=== PATIENT | female | born 1955 | race African-American/Black ===

== ENCOUNTER 2016-10-07 11:57 | Emergency (ER) | payer MEDICAID ==
[~2016-10-07] VITALS: Ht 165.1 cm; Wt 87.0 kg
[~2016-10-07 11:57] MED LIST: DIVA-18 PO; FLUO10CA63 PO; GABA300C PO; IBUP-1509 PO
[2016-10-07] MEDS ORDERED: SODIUM CHLORIDE 0.9% 1,000 ML IV ONE (12:28)
[2016-10-07] MEDS ORDERED: LEVETIRACETAM 500MG PREMIX 100 ML IV ONE (12:30)
[2016-10-07 12:52] LABS: BASOPHILS % 0.7 % (0.0-2.0); EOSINOPHILS % 1.2 % (0.0-5.0); HEMATOCRIT. 38.7 % (36.0-48.0); HEMOGLOBIN. 13.2 g/dL (12.0-16.0); LYMPHOCYTES % 35.5 % (20.0-50.0); MEAN CORPUSCULAR HEMOGLOBIN 30.8 pg (28.0-32.0); MEAN CORPUSCULAR VOLUME 90.5 fL (81.0-99.0); MEAN PLATELET VOLUME 8.1 fl (7.4-10.4); MONOCYTES % 8.9 % (2.0-8.0); NEUTROPHILS % 53.7 % (40.0-76.0); PLATELET 247 x1000/uL (130-400); RED BLOOD CELL COUNT 4.27 mill/uL (4.2-5.4); RED CELL DISTRIBUTION WIDTH 13.8 % (11.6-14.6); WHITE BLOOD COUNT 8.1 x1000/uL (4.5-11.0)
[2016-10-07 13:00] LABS: PROTHROMBIN TIME 10.4 sec
[2016-10-07 13:07] LABS: ALANINE AMINOTRANSFERASE 18 IU/L (13-61); ALBUMIN 3.8 g/dL (3.4-5.0); ANION GAP 16; CALCIUM 8.8 mg/dL (8.5-10.1); CARBON DIOXIDE 30 mEq/L (21-32); CHLORIDE 98 mEq/L (98-107); ETHANOL BLOOD < 10 mg/dL; INDEX HEMOLYSI 1 (1-3); INDEX ICTERIC 1 (1-4); INDEX LIPEMIC 1 (1-3); TROPONIN I < 0.02 ng/mL (0.00-0.04); UREA NITROGEN BLOOD 11 mg/dL (7-21); eGFR > 60 mL/min (>60)
[2016-10-07 13:09] LABS: PHENOBARBITAL 2.2 ug/mL (15.0-40.0)
[2016-10-07 13:10] LABS: CARBAMAZEPINE < 0.5 ug/mL (4-12); PHENYTOIN 0.4 ug/mL (10-20)
[2016-10-07 13:13] LABS: NT PRO B-TYPE NATRIURETIC PEP 208 pg/mL (5-125)
[2016-10-07] MEDS ORDERED: MORPHINE SULFATE 4 MG/ML CPJ (NOT FOR IM USE) IV ONE (15:00)
[2016-10-07] MEDS ORDERED: KETOROLAC 30MG/ML VIAL IV ONE (15:00)
[2016-10-07 15:14] VITALS: BP 151/93
== END 2016-10-07 16:28 | disposition home or self-care (01) ==
LOC: ER 12:13
DX: S09.90XA Unspecified injury of head, initial encounter (principal); R56.9 Unspecified convulsions; R51 Headache; I10 Essential (primary) hypertension; E11.9 Type 2 diabetes mellitus without complications; X58.XXXA Exposure to other specified factors, initial encounter; Y93.89 Activity, other specified; Y92.89 Other specified places as the place of occurrence of the external cause; Z88.8 Allergy status to other drugs, medicaments and biological substances
CPT/HCPCS: 36415; 70450; 80053; 80156; 80165; 80184; 80185; 83880; 84443; 84484; 85025; 85610; 93005; 99285; G0482; J1885; J1953; J2270; J7030; Z7610

== ENCOUNTER 2016-11-02 12:54 | Emergency (ER) | payer MEDICAID ==
[~2016-11-02] VITALS: Ht 165.1 cm; Wt 110.0 kg
[2016-11-02 14:00] LABS: BASOPHILS % 1.2 % (0.0-2.0); EOSINOPHILS % 1.4 % (0.0-5.0); HEMATOCRIT. 38.1 % (36.0-48.0); HEMOGLOBIN. 13.1 g/dL (12.0-16.0); LYMPHOCYTES % 44.4 % (20.0-50.0); MEAN CORPUSCULAR HEMOGLOBIN 30.9 pg (28.0-32.0); MEAN CORPUSCULAR HGB CONC 34.3 g/dL (31.0-37.0); MEAN CORPUSCULAR VOLUME 89.9 fL (81.0-99.0); MEAN PLATELET VOLUME 9.3 fl (7.4-10.4); MONOCYTES % 7.8 % (2.0-8.0); NEUTROPHILS % 45.2 % (40.0-76.0); PLATELET 222 x1000/uL (130-400); RED BLOOD CELL COUNT 4.23 mill/uL (4.2-5.4); RED CELL DISTRIBUTION WIDTH 13.4 % (11.6-14.6); WHITE BLOOD COUNT 8.1 x1000/uL (4.5-11.0)
[2016-11-02 14:06] LABS: CHLORIDE 97 mEq/L (98-107); INDEX HEMOLYSI 1 (1-3); INDEX ICTERIC 1 (1-4); INDEX LIPEMIC 1 (1-3)
[2016-11-02 14:15] LABS: ALANINE AMINOTRANSFERASE 15 IU/L (13-61); ALBUMIN 3.6 g/dL (3.4-5.0); ANION GAP 14; CALCIUM 8.6 mg/dL (8.5-10.1); CARBON DIOXIDE 29 mEq/L (21-32); UREA NITROGEN BLOOD 14 mg/dL (7-21)
[2016-11-02 14:18] LABS: VALPROIC ACID 77.6 ug/mL (50-100); eGFR > 60 mL/min (>60)
[2016-11-02] MEDS ORDERED: FAMOTIDINE 20MG/2ML VIAL IV ONE (15:45)
[2016-11-02] MEDS ORDERED: VISCOUS LIDOCAINE 2% 15 ML UDC MM ONE (15:45)
[2016-11-02] MEDS ORDERED: MAGNESIUM/ALUMINUM HYDROXIDE/SIMETHICONE 30ML UDC PO ONE (15:45)
[2016-11-02 16:56] LABS: CLARITY URINE CLEAR (CLEAR); COLOR URINE YELLOW (YELLOW); GLUCOSE URINE 1+ (NEGATIVE); KETONES URINE NEGATIVE (NEGATIVE); LEUKOCYTE ESTERASE URINE NEGATIVE (NEGATIVE); NITRITE URINE NEGATIVE (NEGATIVE); OCCULT BLOOD URINE NEGATIVE (NEGATIVE); PH URINE 5.5 (4.5-8.0); PROTEIN URINE NEGATIVE (NEGATIVE); SPECIFIC GRAVITY URINE 1.016 (1.005-1.030); UROBILINOGEN URINE 0.2 E.U./dL (0.2-1.0)
[2016-11-02 17:13] LABS: BACTERIA URINE TRACE; RBC URINE NONE SEEN /hpf (0-2); SQUAMOUS EPITHELIAL CELL URINE 1+ /lpf (RARE/1+); WBC URINE 0-2 /hpf (0-2)
[2016-11-02 17:28] VITALS: BP 102/60
== END 2016-11-02 18:35 | disposition home or self-care (01) ==
LOC: ER 12:56
DX: G40.909 Epilepsy, unspecified, not intractable, without status epilepticus (principal); R10.13 Epigastric pain; E11.9 Type 2 diabetes mellitus without complications; I10 Essential (primary) hypertension; Z88.8 Allergy status to other drugs, medicaments and biological substances
CPT/HCPCS: 36415; 80053; 80165; 81001; 82962; 83690; 85025; 96374; 99284; J3490; Z7610

== ENCOUNTER 2016-11-04 12:22 | Emergency (ER) | payer MEDICAID ==
[~2016-11-04] VITALS: Ht 167.6 cm; Wt 70.0 kg
[2016-11-04] MEDS ORDERED: SODIUM CHLORIDE 0.9% 1,000 ML IV ONE (12:48)
[2016-11-04 13:18] LABS: BASOPHILS % 1.2 % (0.0-2.0); EOSINOPHILS % 1.1 % (0.0-5.0); HEMATOCRIT. 39.2 % (36.0-48.0); HEMOGLOBIN. 13.1 g/dL (12.0-16.0); LYMPHOCYTES % 41.5 % (20.0-50.0); MEAN CORPUSCULAR HEMOGLOBIN 30.6 pg (28.0-32.0); MEAN CORPUSCULAR HGB CONC 33.6 g/dL (31.0-37.0); MEAN PLATELET VOLUME 9.8 fl (7.4-10.4); MONOCYTES % 8.7 % (2.0-8.0); NEUTROPHILS % 47.5 % (40.0-76.0); PLATELET 172 x1000/uL (130-400); RED CELL DISTRIBUTION WIDTH 13.4 % (11.6-14.6); WHITE BLOOD COUNT 9.1 x1000/uL (4.5-11.0)
[2016-11-04 13:33] LABS: ALANINE AMINOTRANSFERASE 17 IU/L (13-61); ALBUMIN 3.8 g/dL (3.4-5.0); ANION GAP 16; CALCIUM 9.1 mg/dL (8.5-10.1); CARBON DIOXIDE 29 mEq/L (21-32); CHLORIDE 99 mEq/L (98-107); INDEX HEMOLYSI 1 (1-3); INDEX ICTERIC 1 (1-4); INDEX LIPEMIC 1 (1-3); UREA NITROGEN BLOOD 18 mg/dL (7-21); VALPROIC ACID 78.4 ug/mL (50-100); eGFR > 60 mL/min (>60)
[2016-11-04 17:40] VITALS: BP 129/67
[2016-11-04] MEDS ORDERED: DIVALPROEX SODIUM 500MG DR TABLET PO ONE (18:00)
[2016-11-04] MEDS ORDERED: LEVETIRACETAM 500MG TABLET PO ONE (18:00)
== END 2016-11-04 18:51 | disposition home or self-care (01) ==
LOC: ER 12:42
DX: R56.9 Unspecified convulsions (principal); E11.9 Type 2 diabetes mellitus without complications; I10 Essential (primary) hypertension; Z88.8 Allergy status to other drugs, medicaments and biological substances; Z79.1 Long term (current) use of non-steroidal anti-inflammatories (NSAID); Z79.899 Other long term (current) drug therapy; Z90.710 Acquired absence of both cervix and uterus
CPT/HCPCS: 36415; 80053; 80165; 85025; 93005; 96360; 99285; J7030; Z7610

== ENCOUNTER 2017-02-28 13:13 | Emergency (ER) | payer MEDICAID ==
[~2017-02-28] VITALS: Ht 167.6 cm; Wt 82.0 kg
[2017-02-28] MEDS ORDERED: LORAZEPAM 2MG/ML CPJ IV PRN (14:45)
[2017-02-28 16:18] LABS: CLARITY URINE CLEAR (CLEAR); COLOR URINE YELLOW (YELLOW); GLUCOSE URINE 2+ (NEGATIVE); KETONES URINE TRACE (NEGATIVE); LEUKOCYTE ESTERASE URINE NEGATIVE (NEGATIVE); NITRITE URINE NEGATIVE (NEGATIVE); OCCULT BLOOD URINE NEGATIVE (NEGATIVE); PROTEIN URINE TRACE (NEGATIVE); SPECIFIC GRAVITY URINE 1.018 (1.005-1.030); UROBILINOGEN URINE 0.2 E.U./dL (0.2-1.0)
[2017-02-28 16:30] LABS: *AMPHETAMINES SCREEN URINE NEGATIVE (NEGATIVE); *BARBITURATES SCREEN URINE NEGATIVE (NEGATIVE); *BENZODIAZEPINES SCREEN URINE PRESUMTIVE POSITIVE (NEGATIVE); *COCAINE SCREEN URINE NEGATIVE (NEGATIVE); CANNABINOID URINE SCREEN NEGATIVE (NEGATIVE); METHADONE URINE SCREEN NEGATIVE (NEGATIVE); OPIATES URINE SCREEN NEGATIVE (NEGATIVE); PHENCYCLIDINE URINE SCREEN NEGATIVE (NEGATIVE)
[2017-02-28 18:30] VITALS: BP 143/62
== END 2017-02-28 19:34 | disposition home or self-care (01) ==
LOC: ER 13:17
DX: R56.9 Unspecified convulsions (principal); I10 Essential (primary) hypertension; E11.9 Type 2 diabetes mellitus without complications; Z88.8 Allergy status to other drugs, medicaments and biological substances
CPT/HCPCS: 80305; 81001; 82962; 99284; C1893; Z7610

== ENCOUNTER 2017-03-01 10:21 | Emergency (ER) | payer MEDICAID ==
[~2017-03-01] VITALS: Ht 162.6 cm; Wt 95.0 kg
[2017-03-01 10:57] LABS: EOSINOPHILS % 0.3 % (0.0-5.0); HEMATOCRIT. 37.1 % (36.0-48.0); HEMOGLOBIN. 12.9 g/dL (12.0-16.0); LYMPHOCYTES % 20.8 % (20.0-50.0); MEAN CORPUSCULAR HEMOGLOBIN 30.7 pg (28.0-32.0); MEAN CORPUSCULAR VOLUME 88.5 fL (81.0-99.0); MEAN PLATELET VOLUME 8.9 fl (7.4-10.4); MONOCYTES % 9.9 % (2.0-8.0); PLATELET 226 x1000/uL (130-400); RED BLOOD CELL COUNT 4.19 mill/uL (4.2-5.4)
[2017-03-01 11:04] LABS: INR 1.1; PROTHROMBIN TIME 11.1 sec
[2017-03-01 11:12] LABS: CARBON DIOXIDE 25 mEq/L (21-32); CHLORIDE 98 mEq/L (98-107); ETHANOL BLOOD < 10 mg/dL
[2017-03-01 12:39] LABS: CLARITY URINE CLEAR (CLEAR); COLOR URINE YELLOW (YELLOW); GLUCOSE URINE NEGATIVE (NEGATIVE); KETONES URINE NEGATIVE (NEGATIVE); LEUKOCYTE ESTERASE URINE NEGATIVE (NEGATIVE); NITRITE URINE NEGATIVE (NEGATIVE); OCCULT BLOOD URINE NEGATIVE (NEGATIVE); PROTEIN URINE NEGATIVE (NEGATIVE); SPECIFIC GRAVITY URINE 1.011 (1.005-1.030); UROBILINOGEN URINE 0.2 E.U./dL (0.2-1.0)
[2017-03-01 12:56] LABS: *AMPHETAMINES SCREEN URINE NEGATIVE (NEGATIVE); *BARBITURATES SCREEN URINE NEGATIVE (NEGATIVE); *BENZODIAZEPINES SCREEN URINE PRESUMTIVE POSITIVE (NEGATIVE); *COCAINE SCREEN URINE NEGATIVE (NEGATIVE); CANNABINOID URINE SCREEN NEGATIVE (NEGATIVE); METHADONE URINE SCREEN NEGATIVE (NEGATIVE); OPIATES URINE SCREEN NEGATIVE (NEGATIVE); PHENCYCLIDINE URINE SCREEN NEGATIVE (NEGATIVE)
[2017-03-01] MEDS ORDERED: KETOROLAC 30MG/ML VIAL IV ONE (13:30)
[2017-03-01] MEDS ORDERED: LORAZEPAM 0.5MG TABLET PO ONE (13:30)
[2017-03-01 14:09] VITALS: BP 131/85
== END 2017-03-01 14:09 | disposition home or self-care (01) ==
LOC: ER 11:10
DX: G40.909 Epilepsy, unspecified, not intractable, without status epilepticus (principal); D72.829 Elevated white blood cell count, unspecified; I10 Essential (primary) hypertension; E11.9 Type 2 diabetes mellitus without complications; Z90.710 Acquired absence of both cervix and uterus; Z88.8 Allergy status to other drugs, medicaments and biological substances
CPT/HCPCS: 36415; 70450; 71010; 80053; 80305; 81003; 85025; 85610; 93005; 96374; 99285; G0482; J1885; Z7610

== ENCOUNTER 2017-04-03 21:31 | Emergency (ER) | payer MEDICAID ==
[~2017-04-03] VITALS: Ht 167.6 cm; Wt 100.0 kg
[~2017-04-03 21:31] MED LIST changes: +FLUO10CA25 PO; -FLUO10CA63 PO; -IBUP-1509 PO; +IBUP-2028 PO
[2017-04-03] MEDS ORDERED: SODIUM CHLORIDE 0.9% 1,000 ML IV ONE (22:24)
[2017-04-03] MEDS ORDERED: LEVETIRACETAM 1,000 MG in SODIUM CHLORIDE 0.9% 100 ML IV ONE (22:30)
[2017-04-03] MEDS ORDERED: LORAZEPAM 2MG/ML CPJ IV ONE (22:30)
[2017-04-03 23:45] LABS: BASOPHILS % 0.6 % (0.0-2.0); EOSINOPHILS % 1.2 % (0.0-5.0); HEMATOCRIT. 38.1 % (36.0-48.0); HEMOGLOBIN. 13.3 g/dL (12.0-16.0); LYMPHOCYTES % 39.7 % (20.0-50.0); MEAN CORPUSCULAR HEMOGLOBIN 31.1 pg (28.0-32.0); MEAN CORPUSCULAR VOLUME 89.4 fL (81.0-99.0); MEAN PLATELET VOLUME 9.3 fl (7.4-10.4); MONOCYTES % 10.9 % (2.0-8.0); NEUTROPHILS % 47.6 % (40.0-76.0); PLATELET 213 x1000/uL (130-400); RED BLOOD CELL COUNT 4.26 mill/uL (4.2-5.4); RED CELL DISTRIBUTION WIDTH 13.5 % (11.6-14.6)
[2017-04-04 00:05] LABS: CARBON DIOXIDE 28 mEq/L (21-32); CHLORIDE 99 mEq/L (98-107); CREATINE KINASE 165 IU/L (26-192); ETHANOL BLOOD < 10 mg/dL; TROPONIN I < 0.02 ng/mL (0.00-0.04)
[2017-04-04 02:47] VITALS: BP 125/76
[2017-04-04 02:58] LABS: CLARITY URINE CLEAR (CLEAR); COLOR URINE YELLOW (YELLOW); GLUCOSE URINE 3+ (NEGATIVE); KETONES URINE TRACE (NEGATIVE); LEUKOCYTE ESTERASE URINE NEGATIVE (NEGATIVE); NITRITE URINE NEGATIVE (NEGATIVE); OCCULT BLOOD URINE NEGATIVE (NEGATIVE); PROTEIN URINE NEGATIVE (NEGATIVE); SPECIFIC GRAVITY URINE 1.039 (1.005-1.030); UROBILINOGEN URINE 0.2 E.U./dL (0.2-1.0)
[2017-04-04 03:50] LABS: *AMPHETAMINES SCREEN URINE NEGATIVE (NEGATIVE); *BARBITURATES SCREEN URINE NEGATIVE (NEGATIVE); *BENZODIAZEPINES SCREEN URINE PRESUMTIVE POSITIVE (NEGATIVE); *COCAINE SCREEN URINE NEGATIVE (NEGATIVE); CANNABINOID URINE SCREEN NEGATIVE (NEGATIVE); METHADONE URINE SCREEN NEGATIVE (NEGATIVE); OPIATES URINE SCREEN NEGATIVE (NEGATIVE); PHENCYCLIDINE URINE SCREEN NEGATIVE (NEGATIVE)
[2017-04-08] MEDS ORDERED: FLUO-123 PO (13:26)
[2017-04-08] MEDS ORDERED: GABA-531 PO (13:26)
[2017-04-08] MEDS ORDERED: KEPPSOL PO (13:26)
[2017-04-08] MEDS ORDERED: DIVA-18 PO (13:26)
[2017-04-08] MEDS ORDERED: ATOR10TA PO (13:26)
[2017-04-08] MEDS ORDERED: OXCA300T4 PO (13:26)
== END 2017-04-04 02:53 | disposition home or self-care (01) ==
LOC: ER 21:45
DX: R56.9 Unspecified convulsions (principal); E86.0 Dehydration; E03.9 Hypothyroidism, unspecified; I10 Essential (primary) hypertension; E11.9 Type 2 diabetes mellitus without complications; Z88.8 Allergy status to other drugs, medicaments and biological substances
CPT/HCPCS: 36415; 70450; 71010; 80053; 80165; 80305; 81001; 82550; 84443; 84484; 85025; 93005; 96365; 96375; 99285; G0482; J1953; J2060; J7030; Z7610; J7050

== ENCOUNTER 2017-04-06 08:06 | Inpatient (IN) | payer MEDICAID ==
[~2017-04-06] VITALS: Ht 165.1 cm; Wt 99.3 kg
[2017-04-06] MEDS ORDERED: LEVETIRACETAM 500MG PREMIX 100 ML IV ONE ×2 (08:45→11:15)
[2017-04-06 09:22] LABS: GLUCOSE URINE 3+ (NEGATIVE); KETONES URINE NEGATIVE (NEGATIVE); LEUKOCYTE ESTERASE URINE NEGATIVE (NEGATIVE); NITRITE URINE NEGATIVE (NEGATIVE); OCCULT BLOOD URINE NEGATIVE (NEGATIVE); PH URINE 7.5 (4.5-8.0); PROTEIN URINE NEGATIVE (NEGATIVE); SPECIFIC GRAVITY URINE 1.034 (1.005-1.030); UROBILINOGEN URINE 0.2 E.U./dL (0.2-1.0)
[2017-04-06 09:23] LABS: PROTHROMBIN TIME 10.5 sec (9.4-11.6)
[2017-04-06 09:25] LABS: CARBON DIOXIDE 34 mEq/L (21-32); CHLORIDE 101 mEq/L (98-107)
[2017-04-06 09:28] LABS: ETHANOL BLOOD < 10 mg/dL
[2017-04-06 09:30] LABS: BASOPHILS % 0.5 % (0.0-2.0); EOSINOPHILS % 1.4 % (0.0-5.0); HEMATOCRIT. 38.3 % (36.0-48.0); HEMOGLOBIN. 13.1 g/dL (12.0-16.0); LYMPHOCYTES % 34.9 % (20.0-50.0); MEAN CORPUSCULAR HEMOGLOBIN 30.6 pg (28.0-32.0); MEAN CORPUSCULAR VOLUME 89.6 fL (81.0-99.0); MEAN PLATELET VOLUME 9.1 fl (7.4-10.4); MONOCYTES % 10.5 % (2.0-8.0); NEUTROPHILS % 52.7 % (40.0-76.0); PLATELET 238 x1000/uL (130-400); RED BLOOD CELL COUNT 4.27 mill/uL (4.2-5.4); RED CELL DISTRIBUTION WIDTH 13.9 % (11.6-14.6)
[2017-04-06 09:31] LABS: AMMONIA 31 uMol/L (<32)
[2017-04-06 09:31] LABS: CLARITY URINE CLEAR (CLEAR); COLOR URINE YELLOW (YELLOW)
[2017-04-06 09:32] LABS: TROPONIN I < 0.02 ng/mL (0.00-0.04)
[2017-04-06 09:34] LABS: *AMPHETAMINES SCREEN URINE NEGATIVE (NEGATIVE); *BARBITURATES SCREEN URINE NEGATIVE (NEGATIVE); *BENZODIAZEPINES SCREEN URINE PRESUMTIVE POSITIVE (NEGATIVE); *COCAINE SCREEN URINE NEGATIVE (NEGATIVE); CANNABINOID URINE SCREEN NEGATIVE (NEGATIVE); METHADONE URINE SCREEN NEGATIVE (NEGATIVE); OPIATES URINE SCREEN NEGATIVE (NEGATIVE); PHENCYCLIDINE URINE SCREEN NEGATIVE (NEGATIVE)
[2017-04-06] MEDS ORDERED: LIDOCAINE HCL 1% 20ML VIAL (Pyxis) INJ ONE (10:39)
[2017-04-06] MEDS ORDERED: SODIUM BICARBONATE 4% (2.4MEQ) 5ML VIAL IV ONE (10:39)
[2017-04-06] MEDS ORDERED: LORAZEPAM 2MG/ML CPJ IV ONE (11:15)
[2017-04-06] MEDS ORDERED: LEVETIRACETAM 500MG PREMIX 100 ML IV SCH (11:45)
[2017-04-06] MEDS ORDERED: ONDANSETRON HCL 4MG/2ML VIAL IV PRN ×2 (11:45→14:00)
[2017-04-06] MEDS ORDERED: DEXTROSE 50% WATER 50ML SYRINGE IV PRN (11:45)
[2017-04-06] MEDS ORDERED: IPRATROPIUM/ALBUTEROL 0.5-3(2.5)MG/3ML NEB INH PRN ×2 (11:45→14:00)
[2017-04-06] MEDS ORDERED: CLONIDINE 0.1MG TABLET PO PRN ×2 (11:45→14:00)
[2017-04-06] MEDS ORDERED: DIPHENHYDRAMINE 50MG/ML VIAL IV PRN (11:45)
[2017-04-06] MEDS ORDERED: ACETAMINOPHEN 325MG TABLET PO PRN ×2 (11:45→14:00)
[2017-04-06] MEDS: HYDROCODONE/ACETAMINOPHEN 5/325MG TABLET PO PRN ×2 (12:07→17:15)
[2017-04-06 14:00] VITALS: BP 123/61
[2017-04-06] MEDS ORDERED: DOCUSATE SODIUM 100MG CAPSULE PO PRN (14:00)
[2017-04-06] MEDS ORDERED: HYDROCODONE/ACETAMINOPHEN 5/325MG TABLET PO PRN (14:00)
[2017-04-06] MEDS ORDERED: MAGNESIUM/ALUMINUM HYDROXIDE/SIMETHICONE 30ML UDC PO PRN (14:00)
[2017-04-06 15:39] VITALS: BP 123/61
[2017-04-06] MEDS: ENOXAPARIN 40MG/0.4ML SYR SUBCUT SCH (15:52)
[2017-04-06] MEDS: LORAZEPAM 2MG/ML CPJ IV PRN (15:53)
[2017-04-06 16:00] VITALS: BP 129/50
[2017-04-06] MEDS: BLOOD SUGAR DIAGNOSTIC STRIP TEST SCH ×2 (17:08→20:09)
[2017-04-06] MEDS: DIVALPROEX SODIUM 500MG DR TABLET PO SCH (17:09)
[2017-04-06] MEDS: GABAPENTIN 300MG CAPSULE PO SCH (17:09)
[2017-04-06 17:11] LABS: CREATINE KINASE 90 IU/L (26-192); CREATINE KINASE MB FRACTION 1.1 ng/mL (0.5-3.6); TROPONIN I < 0.02 ng/mL (0.00-0.04)
[2017-04-06] MEDS: INSULIN LISPRO 100 UNITS/ML SUBCUT SCH ×2 (17:52→20:09)
[2017-04-06 20:00] VITALS: BP 134/64
[2017-04-06] MEDS: LEVETIRACETAM 500MG/5ML CUP PO SCH (20:06)
[2017-04-06] MEDS ORDERED: LEVETIRACETAM 500MG/5ML CUP PO SCH (21:00)
[2017-04-07 00:30] VITALS: BP 113/54
[2017-04-07 01:15] LABS: CREATINE KINASE 85 IU/L (26-192); CREATINE KINASE MB FRACTION 0.8 ng/mL (0.5-3.6); TROPONIN I < 0.02 ng/mL (0.00-0.04)
[2017-04-07] MEDS: HYDROCODONE/ACETAMINOPHEN 5/325MG TABLET PO PRN ×2 (04:37→20:27)
[2017-04-07] MEDS: BLOOD SUGAR DIAGNOSTIC STRIP TEST SCH ×4 (05:53→20:41)
[2017-04-07] MEDS: INSULIN LISPRO 100 UNITS/ML SUBCUT SCH ×4 (06:32→20:44)
[2017-04-07 06:49] LABS: BASOPHILS % 0.9 % (0.0-2.0); EOSINOPHILS % 2.6 % (0.0-5.0); HEMATOCRIT. 34.6 % (36.0-48.0); HEMOGLOBIN. 11.8 g/dL (12.0-16.0); LYMPHOCYTES % 40.5 % (20.0-50.0); MEAN CORPUSCULAR HEMOGLOBIN 30.7 pg (28.0-32.0); MEAN CORPUSCULAR VOLUME 89.9 fL (81.0-99.0); MEAN PLATELET VOLUME 9.1 fl (7.4-10.4); MONOCYTES % 9.6 % (2.0-8.0); NEUTROPHILS % 46.4 % (40.0-76.0); PLATELET 206 x1000/uL (130-400); RED BLOOD CELL COUNT 3.85 mill/uL (4.2-5.4); RED CELL DISTRIBUTION WIDTH 13.7 % (11.6-14.6)
[2017-04-07 07:59] LABS: CARBON DIOXIDE 30 mEq/L (21-32); CHLORIDE 102 mEq/L (98-107)
[2017-04-07 08:00] VITALS: BP 125/61
[2017-04-07 08:01] LABS: HDL CHOLESTEROL 49 mg/dL (40-59); LDL CHOLESTEROL 123 mg/dL (5-100)
[2017-04-07] MEDS: LORAZEPAM 2MG/ML CPJ IV PRN ×2 (08:16→12:47)
[2017-04-07] MEDS: LEVETIRACETAM 500MG/5ML CUP PO SCH ×2 (08:25→20:28)
[2017-04-07] MEDS: FLUOXETINE HCL 10 MG CAPSULE PO SCH (08:25)
[2017-04-07] MEDS: GABAPENTIN 300MG CAPSULE PO SCH ×2 (08:25→17:43)
[2017-04-07] MEDS: DIVALPROEX SODIUM 500MG DR TABLET PO SCH ×2 (08:25→17:43)
[2017-04-07 12:00] VITALS: BP 128/66
[2017-04-07] MEDS: ENOXAPARIN 40MG/0.4ML SYR SUBCUT SCH (15:00)
[2017-04-07 16:00] VITALS: BP 124/59
[2017-04-07 20:00] VITALS: BP 132/51
[2017-04-07] MEDS: OXCARBAZEPINE 300MG TABLET PO SCH (20:27)
[2017-04-07] MEDS: ATORVASTATIN CALCIUM 10MG TABLET PO SCH (20:27)
[2017-04-08] VITALS (7 sets, daily range): BP systolic 110–143; BP diastolic 60–71
[2017-04-08] MEDS: HYDROCODONE/ACETAMINOPHEN 5/325MG TABLET PO PRN ×2 (05:58→17:20)
[2017-04-08] MEDS: BLOOD SUGAR DIAGNOSTIC STRIP TEST SCH ×4 (06:01→21:22)
[2017-04-08] MEDS: INSULIN LISPRO 100 UNITS/ML SUBCUT SCH ×4 (06:52→21:36)
[2017-04-08] MEDS: DIVALPROEX SODIUM 500MG DR TABLET PO SCH ×2 (08:47→17:21)
[2017-04-08] MEDS: LEVETIRACETAM 500MG/5ML CUP PO SCH ×2 (08:47→21:23)
[2017-04-08] MEDS: OXCARBAZEPINE 300MG TABLET PO SCH ×2 (08:47→17:21)
[2017-04-08] MEDS: GABAPENTIN 300MG CAPSULE PO SCH ×2 (08:47→17:21)
[2017-04-08] MEDS: FLUOXETINE HCL 10 MG CAPSULE PO SCH (08:47)
[2017-04-08] MEDS ORDERED: KEPPSOL PO (13:26)
[2017-04-08] MEDS ORDERED: FLUO-123 PO (13:26)
[2017-04-08] MEDS ORDERED: DIVA-18 PO (13:26)
[2017-04-08] MEDS ORDERED: GABA-531 PO (13:26)
[2017-04-08] MEDS ORDERED: OXCA300T4 PO (13:26)
[2017-04-08] MEDS ORDERED: ATOR10TA PO (13:26)
[2017-04-08] MEDS: ENOXAPARIN 40MG/0.4ML SYR SUBCUT SCH (17:21)
[2017-04-08] MEDS: ATORVASTATIN CALCIUM 10MG TABLET PO SCH (21:19)
[2017-04-09] VITALS: BP 138/58
[2017-04-09 04:00] VITALS: BP 135/66
[2017-04-09] MEDS: LORAZEPAM 2MG/ML CPJ IV PRN (05:20)
[2017-04-09] MEDS: BLOOD SUGAR DIAGNOSTIC STRIP TEST SCH (06:58)
[2017-04-09] MEDS: INSULIN LISPRO 100 UNITS/ML SUBCUT SCH (07:01)
[2017-04-09 08:00] VITALS: BP 157/61
[2017-04-09] MEDS: OXCARBAZEPINE 300MG TABLET PO SCH (09:00)
[2017-04-09] MEDS: GABAPENTIN 300MG CAPSULE PO SCH (09:00)
[2017-04-09] MEDS: FLUOXETINE HCL 10 MG CAPSULE PO SCH (09:00)
[2017-04-09] MEDS: DIVALPROEX SODIUM 500MG DR TABLET PO SCH (09:00)
[2017-04-09 10:04] VITALS: BP 157/61
[2017-04-09] MEDS: LEVETIRACETAM 500MG/5ML CUP PO SCH (10:04)
== END 2017-04-09 11:05 | DRG 53 ==
LOC: ER 08:37 → 5WST 11:35 → ENRESERV 12:49
PROVIDERS: ADMIT Internal Medicine; ATTEND Internal Medicine
PROC: 02HV33Z Insertion of Infusion Device into Superior Vena Cava, Percutaneous Approach (ICD-10-PCS; 2017-04-06)
PROC: B548ZZA Ultrasonography of Superior Vena Cava, Guidance (ICD-10-PCS; 2017-04-06)
PROC: 4A00X4Z Measurement of Central Nervous Electrical Activity, External Approach (ICD-10-PCS; principal; 2017-04-09)
DX: G40.401 Other generalized epilepsy and epileptic syndromes, not intractable, with status epilepticus (principal); I10 Essential (primary) hypertension; E11.9 Type 2 diabetes mellitus without complications; E78.5 Hyperlipidemia, unspecified; Z79.899 Other long term (current) drug therapy; Z91.14 Patient's other noncompliance with medication regimen; Z91.19 Patient's noncompliance with other medical treatment and regimen; Z88.8 Allergy status to other drugs, medicaments and biological substances; Z90.710 Acquired absence of both cervix and uterus
CPT/HCPCS: 36415; 36569; 70450; 70551; 71010; 76937; 80053; 80061; 80165; 80305; 81001; 82140; 82550; 82553; 82962; 83036; 83735; 83880; 84484; 85025; 85610; 87040; 87086; 93005; 96372; 96374; 96375; 97116; 97162; 97166; 97530; 99285; C1725; G0482; J1650; J1815; J1953; J2060; J3490; A4315

== ENCOUNTER 2017-04-11 00:27 | Inpatient (IN) | payer MEDICAID ==
[~2017-04-11] VITALS: Ht 160 cm; Wt 105.2 kg
[~2017-04-11 00:27] MED LIST changes: +ATOR10TA PO; +FLUO-123 PO; -FLUO10CA25 PO; +GABA-531 PO; -GABA300C PO; -IBUP-2028 PO; +KEPPSOL PO; +OXCA300T4 PO
[2017-04-11] MEDS ORDERED: SODIUM CHLORIDE 0.9% 1,000 ML IV ONE (00:42)
[2017-04-11] MEDS ORDERED: LEVETIRACETAM 500MG PREMIX 100 ML IV ONE (00:45)
[2017-04-11 01:47] LABS: EOSINOPHILS % 1.6 % (0.0-5.0); HEMATOCRIT. 35.4 % (36.0-48.0); HEMOGLOBIN. 12.1 g/dL (12.0-16.0); LYMPHOCYTES % 30.7 % (20.0-50.0); MEAN CORPUSCULAR HEMOGLOBIN 30.6 pg (28.0-32.0); MEAN CORPUSCULAR VOLUME 89.5 fL (81.0-99.0); MEAN PLATELET VOLUME 8.8 fl (7.4-10.4); MONOCYTES % 9.9 % (2.0-8.0); NEUTROPHILS % 56.8 % (40.0-76.0); PLATELET 213 x1000/uL (130-400); RED BLOOD CELL COUNT 3.96 mill/uL (4.2-5.4); RED CELL DISTRIBUTION WIDTH 14.4 % (11.6-14.6)
[2017-04-11 01:55] LABS: PROTHROMBIN TIME 10.4 sec (9.4-11.6)
[2017-04-11 02:05] LABS: CARBON DIOXIDE 26 mEq/L (21-32); CHLORIDE 103 mEq/L (98-107); ETHANOL BLOOD < 10 mg/dL; TROPONIN I < 0.02 ng/mL (0.00-0.04)
[2017-04-11 02:06] LABS: AMMONIA 39 uMol/L (<32)
[2017-04-11] MEDS ORDERED: LACTULOSE 20G/30ML UDC PO ONE (02:45)
[2017-04-11 02:57] LABS: CLARITY URINE CLEAR (CLEAR); COLOR URINE YELLOW (YELLOW); GLUCOSE URINE 3+ (NEGATIVE); KETONES URINE TRACE (NEGATIVE); LEUKOCYTE ESTERASE URINE NEGATIVE (NEGATIVE); NITRITE URINE NEGATIVE (NEGATIVE); OCCULT BLOOD URINE NEGATIVE (NEGATIVE); PH URINE 5.5 (4.5-8.0); PROTEIN URINE NEGATIVE (NEGATIVE); SPECIFIC GRAVITY URINE 1.041 (1.005-1.030); UROBILINOGEN URINE 0.2 E.U./dL (0.2-1.0)
[2017-04-11 03:23] LABS: *AMPHETAMINES SCREEN URINE NEGATIVE (NEGATIVE); *BARBITURATES SCREEN URINE NEGATIVE (NEGATIVE); *BENZODIAZEPINES SCREEN URINE NEGATIVE (NEGATIVE); *COCAINE SCREEN URINE NEGATIVE (NEGATIVE); CANNABINOID URINE SCREEN NEGATIVE (NEGATIVE); METHADONE URINE SCREEN NEGATIVE (NEGATIVE); OPIATES URINE SCREEN NEGATIVE (NEGATIVE); PHENCYCLIDINE URINE SCREEN NEGATIVE (NEGATIVE)
[2017-04-11] MEDS ORDERED: DEXTROSE 50% WATER 50ML SYRINGE IV PRN (07:45)
[2017-04-11 08:00] VITALS: BP_SYST 126; BP_SYST 169; BP_DIAS 69; BP_DIAS 86
[2017-04-11] MEDS: INSULIN LISPRO 100 UNITS/ML SUBCUT SCH ×4 (08:13→21:00)
[2017-04-11] MEDS ORDERED: METF500T4 PO (08:28)
[2017-04-11] MEDS ORDERED: FLUO-124 PO (08:28)
[2017-04-11] MEDS ORDERED: LEVE500T19 PO (08:28)
[2017-04-11] MEDS ORDERED: OXCA600T20 PO (08:28)
[2017-04-11] MEDS ORDERED: ALOG25TA PO (08:29)
[2017-04-11] MEDS ORDERED: DIVA500T51 PO (08:31)
[2017-04-11] MEDS ORDERED: METO-396 PO (08:31)
[2017-04-11] MEDS ORDERED: MEDICATION NOT ON FORMULARY EA (Metoprolol Succinate 1 TAB) PO SCH (09:00)
[2017-04-11] MEDS ORDERED: MEDICATION NOT ON FORMULARY EA (Oxcarbazepine 600 MG) PO SCH (09:00)
[2017-04-11] MEDS ORDERED: ALOGLIPTIN BENZOATE 25 MG PO SCH (09:00)
[2017-04-11] MEDS: LEVETIRACETAM 500MG TABLET PO SCH ×2 (09:46→17:28)
[2017-04-11] MEDS: DIVALPROEX SODIUM 500MG DR TABLET PO SCH ×2 (09:46→17:28)
[2017-04-11] MEDS: OXCARBAZEPINE 300MG TABLET PO SCH ×2 (09:46→17:43)
[2017-04-11] MEDS: FLUOXETINE HCL 20MG CAPSULE PO SCH (09:47)
[2017-04-11] MEDS: METOPROLOL TARTRATE 25MG TABLET PO SCH ×2 (09:48→21:46)
[2017-04-11] MEDS: METFORMIN HCL 500MG TABLET PO SCH ×2 (09:49→17:28)
[2017-04-11] MEDS: GABAPENTIN 300MG CAPSULE PO SCH ×2 (09:49→17:28)
[2017-04-11] MEDS: LINAGLIPTIN 5MG TABLET PO SCH (09:50)
[2017-04-11 12:00] VITALS: BP 169/86
[2017-04-11] MEDS: BLOOD SUGAR DIAGNOSTIC STRIP TEST SCH ×3 (12:50→21:33)
[2017-04-11] MEDS ORDERED: LORAZEPAM 1MG TABLET PO PRN (13:15)
[2017-04-11] MEDS ORDERED: LORAZEPAM 2MG/ML CPJ IV PRN (13:15)
[2017-04-11 16:00] VITALS: BP_SYST 140; BP_DIAS 71; BP_DIAS 88
[2017-04-11 20:00] VITALS: BP 132/71
[2017-04-11] MEDS: INSULIN DETEMIR UD 100 UNITS/ML SYR SUBCUT SCH (21:49)
[2017-04-12] VITALS: BP 139/80
[2017-04-12 04:00] VITALS: BP 126/68
[2017-04-12] MEDS: LEVOTHYROXINE SODIUM 50MCG TABLET PO SCH (06:57)
[2017-04-12] MEDS: METFORMIN HCL 500MG TABLET PO SCH ×2 (06:57→16:41)
[2017-04-12] MEDS: INSULIN LISPRO 100 UNITS/ML SUBCUT SCH ×4 (06:59→21:43)
[2017-04-12] MEDS: BLOOD SUGAR DIAGNOSTIC STRIP TEST SCH ×4 (06:59→20:51)
[2017-04-12 07:41] VITALS: BP 124/60
[2017-04-12] MEDS: DIVALPROEX SODIUM 500MG DR TABLET PO SCH ×2 (08:52→16:42)
[2017-04-12] MEDS: FLUOXETINE HCL 20MG CAPSULE PO SCH (08:52)
[2017-04-12] MEDS: METOPROLOL TARTRATE 25MG TABLET PO SCH ×2 (08:52→21:40)
[2017-04-12] MEDS: LINAGLIPTIN 5MG TABLET PO SCH (08:52)
[2017-04-12] MEDS: GABAPENTIN 300MG CAPSULE PO SCH ×2 (08:52→16:41)
[2017-04-12] MEDS: LEVETIRACETAM 500MG TABLET PO SCH ×2 (08:53→16:42)
[2017-04-12] MEDS: OXCARBAZEPINE 300MG TABLET PO SCH ×2 (08:53→16:42)
[2017-04-12 08:58] LABS: BASOPHILS % 0.7 % (0.0-2.0); HEMOGLOBIN. 13.1 g/dL (12.0-16.0); LYMPHOCYTES % 31.8 % (20.0-50.0); MEAN CORPUSCULAR HEMOGLOBIN 32.1 pg (28.0-32.0); MEAN CORPUSCULAR VOLUME 90.8 fL (81.0-99.0); MEAN PLATELET VOLUME 9.6 fl (7.4-10.4); MONOCYTES % 10.1 % (2.0-8.0); NEUTROPHILS % 56.4 % (40.0-76.0); PLATELET 192 x1000/uL (130-400); RED BLOOD CELL COUNT 4.07 mill/uL (4.2-5.4); RED CELL DISTRIBUTION WIDTH 13.8 % (11.6-14.6)
[2017-04-12 09:11] LABS: CARBON DIOXIDE 27 mEq/L (21-32); CHLORIDE 104 mEq/L (98-107)
[2017-04-12] MEDS: INSULIN DETEMIR UD 100 UNITS/ML SYR SUBCUT SCH ×2 (10:02→21:44)
[2017-04-12 12:00] VITALS: BP 116/54
[2017-04-12 16:00] VITALS: BP 130/51
[2017-04-12] MEDS: ACETAMINOPHEN 325MG TABLET PO PRN (22:53)
[2017-04-13] VITALS: BP 138/72
[2017-04-13 04:00] VITALS: BP 126/51
[2017-04-13] MEDS: BLOOD SUGAR DIAGNOSTIC STRIP TEST SCH ×4 (05:39→20:22)
[2017-04-13] MEDS: ACETAMINOPHEN 325MG TABLET PO PRN (05:42)
[2017-04-13] MEDS: LEVOTHYROXINE SODIUM 50MCG TABLET PO SCH (05:42)
[2017-04-13] MEDS: INSULIN LISPRO 100 UNITS/ML SUBCUT SCH ×4 (06:33→20:22)
[2017-04-13 07:17] LABS: CARBON DIOXIDE 23 mEq/L (21-32); CHLORIDE 107 mEq/L (98-107)
[2017-04-13 08:00] VITALS: BP 180/118
[2017-04-13 08:44] LABS: HEMATOCRIT. 37.8 % (36.0-48.0); HEMOGLOBIN. 12.8 g/dL (12.0-16.0); MEAN CORPUSCULAR HEMOGLOBIN 30.5 pg (28.0-32.0); MEAN CORPUSCULAR VOLUME 89.9 fL (81.0-99.0); MEAN PLATELET VOLUME 9.4 fl (7.4-10.4); PLATELET 207 x1000/uL (130-400); RED CELL DISTRIBUTION WIDTH 14.3 % (11.6-14.6)
[2017-04-13] MEDS: METFORMIN HCL 500MG TABLET PO SCH ×2 (09:19→17:21)
[2017-04-13] MEDS: DIVALPROEX SODIUM 500MG DR TABLET PO SCH ×2 (09:19→17:17)
[2017-04-13] MEDS: LEVETIRACETAM 500MG TABLET PO SCH ×2 (09:19→17:17)
[2017-04-13] MEDS: GABAPENTIN 300MG CAPSULE PO SCH ×2 (09:20→17:17)
[2017-04-13] MEDS: METOPROLOL TARTRATE 25MG TABLET PO SCH ×2 (09:20→21:26)
[2017-04-13] MEDS: FLUOXETINE HCL 20MG CAPSULE PO SCH (09:20)
[2017-04-13] MEDS: LINAGLIPTIN 5MG TABLET PO SCH (09:20)
[2017-04-13] MEDS: OXCARBAZEPINE 300MG TABLET PO SCH ×2 (09:20→17:21)
[2017-04-13] MEDS: INSULIN DETEMIR UD 100 UNITS/ML SYR SUBCUT SCH ×2 (09:23→21:27)
[2017-04-13 10:39] LABS: PLATELET ESTIMATE NORMAL
[2017-04-13 12:00] VITALS: BP 110/68
[2017-04-13] MEDS ORDERED: CLONIDINE 0.1MG TABLET PO PRN (12:15)
[2017-04-13 16:00] VITALS: BP 149/57
[2017-04-13 20:00] VITALS: BP 128/63
[2017-04-14] VITALS: BP 121/54
[2017-04-14 04:00] VITALS: BP 117/51
[2017-04-14] MEDS: INSULIN LISPRO 100 UNITS/ML SUBCUT SCH ×2 (06:42→12:11)
[2017-04-14] MEDS: LEVOTHYROXINE SODIUM 50MCG TABLET PO SCH (06:42)
[2017-04-14] MEDS: BLOOD SUGAR DIAGNOSTIC STRIP TEST SCH ×2 (06:42→12:11)
[2017-04-14 08:00] VITALS: BP 119/55
[2017-04-14 08:09] LABS: BASOPHILS % 0.6 % (0.0-2.0); EOSINOPHILS % 1.5 % (0.0-5.0); HEMATOCRIT. 38.3 % (36.0-48.0); HEMOGLOBIN. 13.2 g/dL (12.0-16.0); LYMPHOCYTES % 30.8 % (20.0-50.0); MEAN CORPUSCULAR HEMOGLOBIN 31.2 pg (28.0-32.0); MEAN CORPUSCULAR VOLUME 90.5 fL (81.0-99.0); MEAN PLATELET VOLUME 10.1 fl (7.4-10.4); MONOCYTES % 11.1 % (2.0-8.0); PLATELET 154 x1000/uL (130-400); RED BLOOD CELL COUNT 4.23 mill/uL (4.2-5.4); RED CELL DISTRIBUTION WIDTH 13.8 % (11.6-14.6)
[2017-04-14 08:24] LABS: CARBON DIOXIDE 25 mEq/L (21-32); CHLORIDE 107 mEq/L (98-107)
[2017-04-14] MEDS: METOPROLOL TARTRATE 25MG TABLET PO SCH (09:00)
[2017-04-14] MEDS: METFORMIN HCL 500MG TABLET PO SCH (09:10)
[2017-04-14] MEDS: OXCARBAZEPINE 300MG TABLET PO SCH (09:10)
[2017-04-14] MEDS: LEVETIRACETAM 500MG TABLET PO SCH (09:10)
[2017-04-14] MEDS: LINAGLIPTIN 5MG TABLET PO SCH (09:10)
[2017-04-14] MEDS: DIVALPROEX SODIUM 500MG DR TABLET PO SCH (09:10)
[2017-04-14] MEDS: FLUOXETINE HCL 20MG CAPSULE PO SCH (09:10)
[2017-04-14] MEDS: GABAPENTIN 300MG CAPSULE PO SCH (09:10)
[2017-04-14] MEDS: INSULIN DETEMIR UD 100 UNITS/ML SYR SUBCUT SCH (11:09)
[2017-04-14 11:23] VITALS: BP 119/55
[2017-04-14 12:00] VITALS: BP 128/63
== END 2017-04-14 13:30 | DRG 53 ==
LOC: ER 00:27 → 6EST 02:39 → ENRESERV 04:38 → 8WST 15:29
PROVIDERS: ADMIT Internal Medicine; ATTEND Internal Medicine
DX: G40.909 Epilepsy, unspecified, not intractable, without status epilepticus (principal); E72.20 Disorder of urea cycle metabolism, unspecified; E11.65 Type 2 diabetes mellitus with hyperglycemia; E83.51 Hypocalcemia; I10 Essential (primary) hypertension; E03.9 Hypothyroidism, unspecified; Z79.84 Long term (current) use of oral hypoglycemic drugs; Z79.899 Other long term (current) drug therapy; Z88.8 Allergy status to other drugs, medicaments and biological substances; Z91.14 Patient's other noncompliance with medication regimen; Z79.1 Long term (current) use of non-steroidal anti-inflammatories (NSAID)
CPT/HCPCS: 36415; 70450; 71010; 80048; 80053; 80165; 80305; 80307; 80329; 81001; 82140; 82542; 82962; 83605; 83690; 83880; 84443; 84484; 85025; 85610; 93005; 97162; C1893; G0482; J1815; J1953; J2060; J7030; J7040

== ENCOUNTER 2017-04-24 21:11 | Inpatient (IN) | payer MEDICAID ==
[~2017-04-24] VITALS: Ht 165.1 cm; Wt 103.1 kg
[~2017-04-24 21:11] MED LIST changes: +ALOG25TA PO; +DIVA500T51 PO; -FLUO-123 PO; +FLUO-124 PO; -KEPPSOL PO; +LEVE500T19 PO; +METF500T4 PO; +METO-396 PO; -OXCA300T4 PO; +OXCA600T20 PO
[2017-04-24] MEDS ORDERED: LORAZEPAM 2MG/ML CPJ IV ONE (23:00)
[2017-04-24 23:02] LABS: CLARITY URINE CLEAR (CLEAR); COLOR URINE YELLOW (YELLOW); GLUCOSE URINE 3+ (NEGATIVE); KETONES URINE 1+ (NEGATIVE); LEUKOCYTE ESTERASE URINE NEGATIVE (NEGATIVE); NITRITE URINE NEGATIVE (NEGATIVE); OCCULT BLOOD URINE NEGATIVE (NEGATIVE); PROTEIN URINE NEGATIVE (NEGATIVE); SPECIFIC GRAVITY URINE 1.035 (1.005-1.030); UROBILINOGEN URINE 0.2 E.U./dL (0.2-1.0)
[2017-04-24 23:15] LABS: BASOPHILS % 0.8 % (0.0-2.0); EOSINOPHILS % 1.6 % (0.0-5.0); HEMATOCRIT. 39.4 % (36.0-48.0); HEMOGLOBIN. 13.5 g/dL (12.0-16.0); LYMPHOCYTES % 40.5 % (20.0-50.0); MEAN CORPUSCULAR HEMOGLOBIN 30.9 pg (28.0-32.0); MEAN CORPUSCULAR VOLUME 90.4 fL (81.0-99.0); MEAN PLATELET VOLUME 8.9 fl (7.4-10.4); MONOCYTES % 8.5 % (2.0-8.0); NEUTROPHILS % 48.6 % (40.0-76.0); PLATELET 266 x1000/uL (130-400); RED BLOOD CELL COUNT 4.36 mill/uL (4.2-5.4); RED CELL DISTRIBUTION WIDTH 13.8 % (11.6-14.6)
[2017-04-24 23:20] LABS: *AMPHETAMINES SCREEN URINE NEGATIVE (NEGATIVE); *BARBITURATES SCREEN URINE NEGATIVE (NEGATIVE); *BENZODIAZEPINES SCREEN URINE NEGATIVE (NEGATIVE); *COCAINE SCREEN URINE NEGATIVE (NEGATIVE); CANNABINOID URINE SCREEN NEGATIVE (NEGATIVE); METHADONE URINE SCREEN NEGATIVE (NEGATIVE); OPIATES URINE SCREEN NEGATIVE (NEGATIVE); PHENCYCLIDINE URINE SCREEN NEGATIVE (NEGATIVE)
[2017-04-24 23:21] LABS: PROTHROMBIN TIME 10.2 sec (9.4-11.6)
[2017-04-24 23:32] LABS: AMMONIA 54 uMol/L (<32); CARBON DIOXIDE 25 mEq/L (21-32); CHLORIDE 104 mEq/L (98-107); CREATINE KINASE 61 IU/L (26-192); ETHANOL BLOOD < 10 mg/dL
[2017-04-25] MEDS ORDERED: LACTULOSE 20G/30ML UDC PO ONE (00:15)
[2017-04-25] MEDS ORDERED: SODIUM CHLORIDE 0.9% 1,000 ML IV SCH (00:23)
[2017-04-25] MEDS ORDERED: ENOXAPARIN 40MG/0.4ML SYR SUBCUT SCH (00:45)
[2017-04-25] MEDS ORDERED: ONDANSETRON HCL 4MG/2ML VIAL IV PRN (00:45)
[2017-04-25] MEDS ORDERED: NA PHOS,M-B/NA PHOS,DI-BA ENEMA 118ML PR PRN (00:45)
[2017-04-25] MEDS ORDERED: LORAZEPAM 2MG/ML CPJ IV PRN (00:45)
[2017-04-25] MEDS ORDERED: CLONIDINE 0.1MG TABLET PO PRN (00:45)
[2017-04-25] MEDS ORDERED: IPRATROPIUM/ALBUTEROL 0.5-3(2.5)MG/3ML NEB INH PRN (00:45)
[2017-04-25] MEDS ORDERED: ACETAMINOPHEN 325MG TABLET PO PRN (00:45)
[2017-04-25] MEDS ORDERED: DEXTROSE 50% WATER 50ML SYRINGE IV PRN (00:45)
[2017-04-25] MEDS ORDERED: NITROGLYCERIN 0.4MG TABLET SL SL PRN (00:45)
[2017-04-25] MEDS ORDERED: MAGNESIUM/ALUMINUM HYDROXIDE/SIMETHICONE 30ML UDC PO PRN (00:45)
[2017-04-25] MEDS ORDERED: DOCUSATE SODIUM 100MG CAPSULE PO PRN (00:45)
[2017-04-25 03:20] VITALS: BP 136/76
[2017-04-25] MEDS: LACTULOSE 20G/30ML UDC PO SCH ×5 (06:14→20:15)
[2017-04-25] MEDS: DIVALPROEX SODIUM 250MG ER TABLET PO SCH ×2 (06:14→18:05)
[2017-04-25] MEDS: BLOOD SUGAR DIAGNOSTIC STRIP TEST SCH ×4 (06:15→21:16)
[2017-04-25] MEDS: SODIUM CHLORIDE 0.9% 1,000 ML IV SCH ×3 (06:15→21:01)
[2017-04-25] MEDS: INSULIN LISPRO 100 UNITS/ML SUBCUT SCH ×4 (06:19→21:23)
[2017-04-25 08:00] VITALS: BP 139/66
[2017-04-25] MEDS: KETOROLAC 15MG/ML VIAL IV PRN ×3 (08:11→20:15)
[2017-04-25] MEDS: FAMOTIDINE 20MG/2ML VIAL IV SCH ×2 (09:21→20:15)
[2017-04-25] MEDS: ENOXAPARIN 30MG/0.3ML SYR SUBCUT SCH ×2 (09:22→20:14)
[2017-04-25] MEDS: LEVETIRACETAM 500MG TABLET PO SCH ×2 (09:22→20:14)
[2017-04-25 12:00] VITALS: BP 123/67
[2017-04-25 16:00] VITALS: BP 110/56
[2017-04-25 20:00] VITALS: BP 124/64
[2017-04-26] VITALS: BP 147/64
[2017-04-26 04:00] VITALS: BP 108/63
[2017-04-26] MEDS: LACTULOSE 20G/30ML UDC PO SCH ×4 (04:00→08:32)
[2017-04-26] MEDS: DIVALPROEX SODIUM 250MG ER TABLET PO SCH (05:01)
[2017-04-26] MEDS: INSULIN LISPRO 100 UNITS/ML SUBCUT SCH (07:31)
[2017-04-26] MEDS: BLOOD SUGAR DIAGNOSTIC STRIP TEST SCH (07:31)
[2017-04-26 08:00] VITALS: BP 148/65
[2017-04-26] MEDS: KETOROLAC 15MG/ML VIAL IV PRN (08:55)
[2017-04-26] MEDS: FAMOTIDINE 20MG/2ML VIAL IV SCH (09:20)
[2017-04-26] MEDS: LEVETIRACETAM 500MG TABLET PO SCH (09:21)
[2017-04-26] MEDS: ENOXAPARIN 30MG/0.3ML SYR SUBCUT SCH (09:21)
[2017-04-26 11:01] VITALS: BP 148/65
== END 2017-04-26 11:30 | DRG 53 ==
LOC: ER 21:28 → 7WST 04-25 00:26 → ENRESERV 04-25 02:29 → 7WST 04-25 03:42
PROVIDERS: ADMIT Internal Medicine; ATTEND Internal Medicine
DX: G40.909 Epilepsy, unspecified, not intractable, without status epilepticus (principal); I10 Essential (primary) hypertension; E11.9 Type 2 diabetes mellitus without complications; E66.9 Obesity, unspecified; Z68.37 Body mass index [BMI] 37.0-37.9, adult; Z88.8 Allergy status to other drugs, medicaments and biological substances; Z79.899 Other long term (current) drug therapy
CPT/HCPCS: 36415; 70450; 71010; 80053; 80165; 80305; 81001; 82140; 82550; 82962; 83036; 85025; 85610; 87086; 93005; 93970; 96374; 99291; C1893; G0482; J1650; J1815; J1885; J2060; J3490; J7030; J7040

== ENCOUNTER 2017-04-29 09:35 | Inpatient (IN) | payer MEDICAID ==
[~2017-04-29] VITALS: Ht 160 cm; Wt 90.7 kg
[2017-04-29] MEDS ORDERED: SODIUM CHLORIDE 0.9% 1,000 ML IV ONE (10:14)
[2017-04-29] MEDS ORDERED: LORAZEPAM 2MG/ML CPJ IV ONE (10:15)
[2017-04-29 10:55] LABS: HEMATOCRIT. 37.9 % (36.0-48.0); HEMOGLOBIN. 12.9 g/dL (12.0-16.0); MEAN CORPUSCULAR HEMOGLOBIN 30.6 pg (28.0-32.0); MEAN CORPUSCULAR VOLUME 89.8 fL (81.0-99.0); MEAN PLATELET VOLUME 8.5 fl (7.4-10.4); PLATELET 259 x1000/uL (130-400); RED BLOOD CELL COUNT 4.22 mill/uL (4.2-5.4); RED CELL DISTRIBUTION WIDTH 13.9 % (11.6-14.6)
[2017-04-29 11:09] LABS: AMMONIA 40 uMol/L (<32)
[2017-04-29 11:12] LABS: CLARITY URINE CLEAR (CLEAR); COLOR URINE YELLOW (YELLOW); GLUCOSE URINE 3+ (NEGATIVE); KETONES URINE TRACE (NEGATIVE); LEUKOCYTE ESTERASE URINE NEGATIVE (NEGATIVE); NITRITE URINE NEGATIVE (NEGATIVE); OCCULT BLOOD URINE NEGATIVE (NEGATIVE); PH URINE 8.5 (4.5-8.0); PROTEIN URINE NEGATIVE (NEGATIVE); SPECIFIC GRAVITY URINE 1.027 (1.005-1.030); UROBILINOGEN URINE 0.2 E.U./dL (0.2-1.0)
[2017-04-29 11:13] LABS: CARBON DIOXIDE 26 mEq/L (21-32); CHLORIDE 102 mEq/L (98-107); ETHANOL BLOOD < 10 mg/dL; TROPONIN I < 0.02 ng/mL (0.00-0.04)
[2017-04-29 11:31] LABS: PLATELET ESTIMATE NORMAL
[2017-04-29 11:47] LABS: *AMPHETAMINES SCREEN URINE NEGATIVE (NEGATIVE); *BARBITURATES SCREEN URINE NEGATIVE (NEGATIVE); *BENZODIAZEPINES SCREEN URINE NEGATIVE (NEGATIVE); *COCAINE SCREEN URINE NEGATIVE (NEGATIVE); CANNABINOID URINE SCREEN NEGATIVE (NEGATIVE); METHADONE URINE SCREEN NEGATIVE (NEGATIVE); OPIATES URINE SCREEN NEGATIVE (NEGATIVE); PHENCYCLIDINE URINE SCREEN NEGATIVE (NEGATIVE)
[2017-04-29] MEDS ORDERED: KETOROLAC 15MG/ML VIAL IV ONE (14:45)
[2017-04-29] MEDS ORDERED: SODIUM CHLORIDE 0.9% 1,000 ML IV SCH (14:57)
[2017-04-29 16:43] VITALS: BP 185/138
[2017-04-29 16:45] VITALS: BP 185/138
[2017-04-29 20:00] VITALS: BP 151/88
[2017-04-29] MEDS ORDERED: CLONIDINE 0.1MG TABLET PO PRN (20:45)
[2017-04-29] MEDS ORDERED: HYDRALAZINE 20MG/ML VIAL IV PRN (20:45)
[2017-04-29] MEDS ORDERED: LORAZEPAM 2MG/ML CPJ IV PRN (20:45)
[2017-04-29] MEDS ORDERED: HYDROMORPHONE HCL/PF 2MG/ML CPJ IV NR (21:00)
[2017-04-29] MEDS ORDERED: METOPROLOL TARTRATE 5MG/5ML VIAL IV NR (21:30)
[2017-04-29] MEDS: SODIUM CHLORIDE 0.9% 1,000 ML IV SCH (21:48)
[2017-04-29] MEDS: LACTULOSE 20G/30ML UDC PO SCH (21:48)
[2017-04-29] MEDS: LEVETIRACETAM 500 MG in SODIUM CHLORIDE 0.9% 100 ML IV SCH (22:15)
[2017-04-29] MEDS ORDERED: LEVOFLOXACIN 500MG PREMIX 100 ML IV SCH (22:30)
[2017-04-29] MEDS ORDERED: DEXTROSE 50% WATER 50ML SYRINGE IV PRN (23:45)
[2017-04-30] VITALS: BP 136/73
[2017-04-30 04:00] VITALS: BP 125/64
[2017-04-30] MEDS: LACTULOSE 20G/30ML UDC PO SCH ×3 (06:37→22:31)
[2017-04-30] MEDS: SODIUM CHLORIDE 0.9% 1,000 ML IV SCH (06:38)
[2017-04-30] MEDS: BLOOD SUGAR DIAGNOSTIC STRIP TEST SCH ×4 (06:40→21:00)
[2017-04-30 07:07] LABS: BASOPHILS % 0.3 % (0.0-2.0); EOSINOPHILS % 0.7 % (0.0-5.0); HEMATOCRIT. 35.8 % (36.0-48.0); LYMPHOCYTES % 29.5 % (20.0-50.0); MEAN CORPUSCULAR HEMOGLOBIN 30.7 pg (28.0-32.0); MEAN CORPUSCULAR VOLUME 91.1 fL (81.0-99.0); MEAN PLATELET VOLUME 8.9 fl (7.4-10.4); MONOCYTES % 11.2 % (2.0-8.0); NEUTROPHILS % 58.3 % (40.0-76.0); PLATELET 241 x1000/uL (130-400); RED BLOOD CELL COUNT 3.93 mill/uL (4.2-5.4); RED CELL DISTRIBUTION WIDTH 13.9 % (11.6-14.6)
[2017-04-30 08:00] VITALS: BP 131/77
[2017-04-30 08:16] LABS: CARBON DIOXIDE 29 mEq/L (21-32); CHLORIDE 104 mEq/L (98-107)
[2017-04-30] MEDS: INSULIN LISPRO 100 UNITS/ML SUBCUT SCH ×4 (08:26→22:48)
[2017-04-30] MEDS: LEVETIRACETAM 500 MG in SODIUM CHLORIDE 0.9% 100 ML IV SCH (09:43)
[2017-04-30 12:00] VITALS: BP 165/75
[2017-04-30] MEDS ORDERED: NON FORMULARY PATIENT HOME MED EA XX SCH (13:00)
[2017-04-30] MEDS: OXCARBAZEPINE 300MG TABLET PO SCH ×2 (15:08→22:30)
[2017-04-30] MEDS: LACOSAMIDE 200 MG TABLET (VIMPAT) PO SCH ×2 (15:08→22:30)
[2017-04-30] MEDS: DIVALPROEX SODIUM 500MG DR TABLET PO SCH ×2 (15:08→22:30)
[2017-04-30] MEDS: HYDROCODONE/ACETAMINOPHEN 5/325MG TABLET PO PRN ×2 (15:09→22:31)
[2017-04-30 16:00] VITALS: BP 145/69
[2017-04-30 20:00] VITALS: BP 151/71
[2017-04-30] MEDS: LEVETIRACETAM 1,500 MG in SODIUM CHLORIDE 0.9% 100 ML IV SCH (22:29)
[2017-05-01] VITALS (7 sets, daily range): BP systolic 147–182; BP diastolic 67–92
[2017-05-01] MEDS: SODIUM CHLORIDE 0.9% 1,000 ML IV SCH ×2 (06:08→12:57)
[2017-05-01] MEDS: BLOOD SUGAR DIAGNOSTIC STRIP TEST SCH ×3 (06:08→18:28)
[2017-05-01] MEDS: LACTULOSE 20G/30ML UDC PO SCH ×2 (06:08→13:19)
[2017-05-01 06:11] LABS: BASOPHILS % 0.7 % (0.0-2.0); EOSINOPHILS % 1.6 % (0.0-5.0); HEMATOCRIT. 36.3 % (36.0-48.0); HEMOGLOBIN. 12.4 g/dL (12.0-16.0); LYMPHOCYTES % 44.4 % (20.0-50.0); MEAN CORPUSCULAR HEMOGLOBIN 30.8 pg (28.0-32.0); MEAN CORPUSCULAR VOLUME 90.2 fL (81.0-99.0); MEAN PLATELET VOLUME 8.8 fl (7.4-10.4); MONOCYTES % 9.3 % (2.0-8.0); PLATELET 248 x1000/uL (130-400); RED BLOOD CELL COUNT 4.02 mill/uL (4.2-5.4); RED CELL DISTRIBUTION WIDTH 13.9 % (11.6-14.6)
[2017-05-01 07:37] LABS: CARBON DIOXIDE 26 mEq/L (21-32); CHLORIDE 106 mEq/L (98-107)
[2017-05-01] MEDS: INSULIN LISPRO 100 UNITS/ML SUBCUT SCH ×3 (08:10→18:31)
[2017-05-01] MEDS: OXCARBAZEPINE 300MG TABLET PO SCH (09:00)
[2017-05-01] MEDS: DIVALPROEX SODIUM 500MG DR TABLET PO SCH (09:12)
[2017-05-01] MEDS: LACOSAMIDE 200 MG TABLET (VIMPAT) PO SCH (09:15)
[2017-05-01] MEDS: HYDROCODONE/ACETAMINOPHEN 5/325MG TABLET PO PRN (09:15)
[2017-05-01] MEDS: LEVETIRACETAM 1,500 MG in SODIUM CHLORIDE 0.9% 100 ML IV SCH (12:13)
[2017-05-01] MEDS ORDERED: LEVE1000 PO (19:32)
[2017-05-01] MEDS ORDERED: LACO100T2 PO (19:33)
[2017-05-01] MEDS ORDERED: OXCA300T4 PO (19:34)
[2017-05-01] MEDS ORDERED: DIVA-18 PO (19:34)
== END 2017-05-01 20:12 | DRG 53 ==
LOC: ER 09:35 → ENRESERV 14:13 → 7WST 14:59 → EDBEDREQ 15:01
PROVIDERS: ADMIT Internal Medicine; ATTEND Internal Medicine
PROC: 4A00X4Z Measurement of Central Nervous Electrical Activity, External Approach (ICD-10-PCS; principal; 2017-05-01)
DX: G40.911 Epilepsy, unspecified, intractable, with status epilepticus (principal); I10 Essential (primary) hypertension; R10.9 Unspecified abdominal pain; E11.9 Type 2 diabetes mellitus without complications; F31.9 Bipolar disorder, unspecified; Z79.84 Long term (current) use of oral hypoglycemic drugs; Z79.899 Other long term (current) drug therapy; Z90.710 Acquired absence of both cervix and uterus; Z91.14 Patient's other noncompliance with medication regimen; Z91.19 Patient's noncompliance with other medical treatment and regimen; Z88.8 Allergy status to other drugs, medicaments and biological substances
CPT/HCPCS: 36415; 70450; 76700; 80053; 80165; 80305; 80339; 81001; 82140; 82962; 83735; 83880; 84484; 85025; 85610; 87040; 87086; 93005; 96361; 96374; 96375; 97163; 99285; G0482; J1170; J1815; J1885; J1953; J1956; J2060; J3490; J7030; J7050

== ENCOUNTER 2017-05-14 03:00 | Emergency (ER) | payer MEDICAID ==
[~2017-05-14 03:00] MED LIST changes: +LACO100T2 PO; +LEVE1000 PO; +OXCA300T4 PO
[2017-05-14] MEDS ORDERED: ACETAMINOPHEN 325MG TABLET ONE (04:36)
[2017-05-14 05:15] VITALS: BP 148/76
[2017-05-14] MEDS ORDERED: LEVETIRACETAM 500MG TABLET ONE (05:17)
[2017-05-14 07:03] LABS: PARTIAL THROMBOPLASTIN TIME 20.7 sec (23.4-31.0); PROTHROMBIN TIME 10.1 sec (9.4-11.6)
[2017-05-14 07:05] LABS: GLUCOSE URINE 3+ (NEGATIVE); KETONES URINE NEGATIVE (NEGATIVE); LEUKOCYTE ESTERASE URINE NEGATIVE (NEGATIVE); NITRITE URINE NEGATIVE (NEGATIVE); OCCULT BLOOD URINE NEGATIVE (NEGATIVE); PROTEIN URINE NEGATIVE (NEGATIVE); SPECIFIC GRAVITY URINE 1.028 (1.005-1.030); UROBILINOGEN URINE 0.2 E.U./dL (0.2-1.0)
[2017-05-14 07:13] LABS: CLARITY URINE CLEAR (CLEAR); COLOR URINE YELLOW (YELLOW)
[2017-05-14 07:16] LABS: HCG SCREEN NEGATIVE
[2017-05-14 07:29] LABS: BASOPHILS % 0.8 % (0.0-2.0); EOSINOPHILS % 1.3 % (0.0-5.0); HEMATOCRIT. 39.8 % (36.0-48.0); HEMOGLOBIN. 13.6 g/dL (12.0-16.0); LYMPHOCYTES % 26.9 % (20.0-50.0); MEAN CORPUSCULAR HEMOGLOBIN 30.5 pg (28.0-32.0); MEAN CORPUSCULAR VOLUME 89.6 fL (81.0-99.0); MEAN PLATELET VOLUME 10.9 fl (7.4-10.4); MONOCYTES % 10.9 % (2.0-8.0); NEUTROPHILS % 60.1 % (40.0-76.0); PLATELET 179 x1000/uL (130-400); RED BLOOD CELL COUNT 4.45 mill/uL (4.2-5.4)
[2017-05-14 07:44] LABS: CARBON DIOXIDE 29 mEq/L (21-32); CHLORIDE 103 mEq/L (98-107)
[2017-05-14 07:45] LABS: *AMPHETAMINES SCREEN URINE NEGATIVE (NEGATIVE); *BARBITURATES SCREEN URINE NEGATIVE (NEGATIVE); *BENZODIAZEPINES SCREEN URINE NEGATIVE (NEGATIVE); *COCAINE SCREEN URINE NEGATIVE (NEGATIVE); CANNABINOID URINE SCREEN NEGATIVE (NEGATIVE); METHADONE URINE SCREEN NEGATIVE (NEGATIVE); OPIATES URINE SCREEN NEGATIVE (NEGATIVE); PHENCYCLIDINE URINE SCREEN NEGATIVE (NEGATIVE)
[2017-05-14] MEDS ORDERED: LEVETIRACETAM 500MG TABLET PO NR (20:00)
[2017-05-14] MEDS ORDERED: ACETAMINOPHEN 325MG TABLET PO NR (20:15)
== END 2017-05-14 05:30 | disposition home or self-care (01) ==
LOC: ER 03:00
DX: G40.909 Epilepsy, unspecified, not intractable, without status epilepticus (principal)
CPT/HCPCS: 36415; 70450; 71010; 80053; 80165; 80305; 81001; 84703; 85025; 85610; 85730; 93005; 99285

== ENCOUNTER 2017-06-11 11:08 | Emergency (ER) | payer MEDICAID ==
[~2017-06-11] VITALS: Ht 157.5 cm; Wt 68.0 kg
[2017-06-11] MEDS ORDERED: SODIUM CHLORIDE 0.9% 1,000 ML IV ONE (11:27)
[2017-06-11] MEDS ORDERED: LORAZEPAM 2MG/ML CPJ IV ONE (11:30)
[2017-06-11] MEDS ORDERED: LEVETIRACETAM 500MG PREMIX 100 ML IV ONE (11:45)
[2017-06-11 11:59] LABS: BASOPHILS % 0.7 % (0.0-2.0); EOSINOPHILS % 0.5 % (0.0-5.0); HEMATOCRIT. 39.4 % (36.0-48.0); HEMOGLOBIN. 13.6 g/dL (12.0-16.0); LYMPHOCYTES % 22.1 % (20.0-50.0); MEAN CORPUSCULAR HEMOGLOBIN 30.7 pg (28.0-32.0); MEAN PLATELET VOLUME 8.9 fl (7.4-10.4); MONOCYTES % 8.9 % (2.0-8.0); NEUTROPHILS % 67.8 % (40.0-76.0); PLATELET 271 x1000/uL (130-400); PROTHROMBIN TIME 10.9 sec (9.4-11.6); RED BLOOD CELL COUNT 4.43 mill/uL (4.2-5.4)
[2017-06-11 12:03] LABS: AMMONIA 34 uMol/L (<32)
[2017-06-11 12:07] LABS: CARBON DIOXIDE 25 mEq/L (21-32); CHLORIDE 101 mEq/L (98-107); CREATINE KINASE 48 IU/L (26-192); ETHANOL BLOOD < 10 mg/dL; TROPONIN I < 0.02 ng/mL (0.00-0.04)
[2017-06-11 12:16] LABS: CARBAMAZEPINE < 0.5 ug/mL (4-12); PHENOBARBITAL < 2.1 ug/mL (15.0-40.0)
[2017-06-11] MEDS ORDERED: LORAZEPAM 1MG TABLET PO ONE (13:00)
[2017-06-11] MEDS ORDERED: DIVALPROEX SODIUM 250MG ER TABLET PO ONE (13:00)
[2017-06-11] MEDS ORDERED: LEVETIRACETAM 500MG/5ML CUP PO ONE (13:00)
[2017-06-11 14:36] LABS: GLUCOSE URINE 3+ (NEGATIVE); KETONES URINE NEGATIVE (NEGATIVE); LEUKOCYTE ESTERASE URINE NEGATIVE (NEGATIVE); NITRITE URINE NEGATIVE (NEGATIVE); OCCULT BLOOD URINE NEGATIVE (NEGATIVE); PROTEIN URINE NEGATIVE (NEGATIVE); SPECIFIC GRAVITY URINE 1.038 (1.005-1.030); UROBILINOGEN URINE 0.2 E.U./dL (0.2-1.0)
[2017-06-11 14:39] LABS: CLARITY URINE CLEAR (CLEAR); COLOR URINE YELLOW (YELLOW)
[2017-06-11] MEDS ORDERED: INSULIN REGULAR (HUMULIN R) 300UNITS/3ML SUBCUT ONE (14:45)
[2017-06-11 15:12] LABS: *AMPHETAMINES SCREEN URINE NEGATIVE (NEGATIVE); *BARBITURATES SCREEN URINE NEGATIVE (NEGATIVE); *BENZODIAZEPINES SCREEN URINE NEGATIVE (NEGATIVE); *COCAINE SCREEN URINE NEGATIVE (NEGATIVE); CANNABINOID URINE SCREEN NEGATIVE (NEGATIVE); METHADONE URINE SCREEN NEGATIVE (NEGATIVE); OPIATES URINE SCREEN NEGATIVE (NEGATIVE); PHENCYCLIDINE URINE SCREEN NEGATIVE (NEGATIVE)
[2017-06-11 20:30] VITALS: BP 142/80
== END 2017-06-11 20:30 | disposition home or self-care (01) ==
LOC: ER 11:25
DX: G40.409 Other generalized epilepsy and epileptic syndromes, not intractable, without status epilepticus (principal); E11.65 Type 2 diabetes mellitus with hyperglycemia; I10 Essential (primary) hypertension; Z88.8 Allergy status to other drugs, medicaments and biological substances
CPT/HCPCS: 36415; 71010; 80053; 80156; 80165; 80184; 80185; 80305; 81001; 82140; 82550; 82962; 84443; 84484; 85025; 85610; 93005; 96372; 99285; G0482; J1815; Z7610; J7030

== ENCOUNTER 2017-07-07 13:20 | Emergency (ER) | payer MEDICAID ==
[~2017-07-07] VITALS: Ht 162.6 cm; Wt 95.0 kg
[2017-07-07] MEDS ORDERED: LORAZEPAM 2MG/ML CPJ IV ONE (15:30)
[2017-07-07 15:50] LABS: CARBON DIOXIDE 26 mEq/L (21-32); CHLORIDE 102 mEq/L (98-107); ETHANOL BLOOD < 10 mg/dL
[2017-07-07 16:55] LABS: BASOPHILS % 1.1 % (0.0-2.0); EOSINOPHILS % 0.5 % (0.0-5.0); HEMATOCRIT. 40.9 % (36.0-48.0); HEMOGLOBIN. 14.1 g/dL (12.0-16.0); LYMPHOCYTES % 23.6 % (20.0-50.0); MEAN CORPUSCULAR HEMOGLOBIN 30.4 pg (28.0-32.0); MEAN CORPUSCULAR VOLUME 88.1 fL (81.0-99.0); MEAN PLATELET VOLUME 9.7 fl (7.4-10.4); MONOCYTES % 7.9 % (2.0-8.0); NEUTROPHILS % 66.9 % (40.0-76.0); PLATELET 181 x1000/uL (130-400); RED BLOOD CELL COUNT 4.64 mill/uL (4.2-5.4); RED CELL DISTRIBUTION WIDTH 13.7 % (11.6-14.6)
[2017-07-07 17:02] LABS: INR 1.1; PROTHROMBIN TIME 11.2 sec (9.4-11.6)
[2017-07-07 17:12] LABS: CARBAMAZEPINE < 0.5 ug/mL (4-12); PHENOBARBITAL < 2.1 ug/mL (15.0-40.0)
[2017-07-07 17:39] LABS: CLARITY URINE CLEAR (CLEAR); COLOR URINE YELLOW (YELLOW); KETONES URINE 1+ (NEGATIVE); LEUKOCYTE ESTERASE URINE NEGATIVE (NEGATIVE); NITRITE URINE NEGATIVE (NEGATIVE); OCCULT BLOOD URINE NEGATIVE (NEGATIVE); PH URINE 6.5 (4.5-8.0); PROTEIN URINE TRACE (NEGATIVE); SPECIFIC GRAVITY URINE 1.029 (1.005-1.030); UROBILINOGEN URINE 0.2 E.U./dL (0.2-1.0)
[2017-07-07] MEDS ORDERED: IBUPROFEN 400MG TABLET PO ONE (17:45)
[2017-07-07 17:51] VITALS: BP 141/80
[2017-07-07 18:02] LABS: *AMPHETAMINES SCREEN URINE NEGATIVE (NEGATIVE); *BARBITURATES SCREEN URINE NEGATIVE (NEGATIVE); *BENZODIAZEPINES SCREEN URINE NEGATIVE (NEGATIVE); *COCAINE SCREEN URINE NEGATIVE (NEGATIVE); CANNABINOID URINE SCREEN NEGATIVE (NEGATIVE); METHADONE URINE SCREEN NEGATIVE (NEGATIVE); OPIATES URINE SCREEN NEGATIVE (NEGATIVE); PHENCYCLIDINE URINE SCREEN NEGATIVE (NEGATIVE)
[2017-07-09] MEDS ORDERED: ACET-2178 PO (02:42)
[2017-07-09] MEDS ORDERED: CLON0.1T14 PO (02:42)
[2017-07-09] MEDS ORDERED: CARDIZEM PO (02:42)
[2017-07-09] MEDS ORDERED: IPRA3AMP9 HHN (02:42)
[2017-07-13] MEDS ORDERED: ONDA4TAB5 PO (23:26)
[2017-07-16] MEDS ORDERED: LEVO500T2 PO (13:10)
== END 2017-07-07 18:54 | disposition home or self-care (01) ==
LOC: ER 13:46
DX: G40.909 Epilepsy, unspecified, not intractable, without status epilepticus (principal); E11.65 Type 2 diabetes mellitus with hyperglycemia; I10 Essential (primary) hypertension; Z90.710 Acquired absence of both cervix and uterus; Z79.84 Long term (current) use of oral hypoglycemic drugs
CPT/HCPCS: 36415; 70450; 80053; 80156; 80165; 80184; 80185; 80305; 81001; 85025; 85610; 93005; 99285; G0482